=== PATIENT | male | born 1940 | race Caucasian/White ===

== ENCOUNTER 2017-11-23 09:45 | Outpatient (RCR) | payer OTHER, SELFPAY ==
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
--- NOTE | 2017-09-21 12:01 | PT.OPPOC ---
Current Diagnoses Full incontinence of feces (09/21/17) Unspecified urinary incontinence (09/21/17) Provider Visit Care Team Role Provider Type Alec Merrill MD Attending Provider Non-Staff Family Provider Primary Care Provider Specialty: Internal Medicine Address: [address] [place] [address], [facility] Email: Plan Of Care PT-OP-T Assessment and Plan Start: 09/21/17 09:41 Freq: Status: Active Protocol: Document 09/21/17 09:45 AMB (Rec: 09/21/17 13:01 AMB [email or web address]) Physical Therapy Assessment Rehab Potential Rehabilitation Potential Good Evaluation Complexity Number of Personal Factors/Comorbidities 1-2 Number of Body Systems Impaired 1-2 Clinical Presentation at Evaluation Stable Impairments Impairments Functional Activities Strength Goals Two Impairment Functional activities Short Term Goal (STG) The patient will get into a bowel routine, so that he has a bowel movement regularly in the morning. STG Duration 5 weeks One Impairment Pelvic floor strength Short Term Goal (STG) The patient will improve his pelvic floor strength to 3/5. STG Duration 5 weeks Snf Goal (LTG) The patient will use pelvic floor strengthening to be independent with an urge suppression program. 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 He now has intermittent difficult holding his bowels. He does present with sphincter weakness, but improved bowel habits would also improve his continence. He will benefit from physical therapy for instruction in both strengthening and improving bowel habits. Physical Therapy Plan Frequency and Duration Frequency of Treatment 1x/Week Duration of Treatment 10 weeks Plan of Care Start Date 09/21/17 Plan of Care End Date 11/30/17 Therapeutic Interventions Therapeutic Interventions Home Exercise Program Manual Therapy Neuromuscular Re-education Patient/Caregiver Education Self-Care/Home Management Therapeutic Activities Therapeutic Exercises Modalities Biofeedback Electric Stimulation Next Visit Focus/Plan Next Note Type Treatment Note Plan of Care Dates Plan of Care Start Date 09/21/17 Plan of Care End Date 11/30/17 Please Sign and Return: I have reviewed this Plan of Care and certify that the skilled therapy services above are required to meet the patient?s needs. Physician Signature Date Printed Name and Credentials Clinical Instructor Signature Printed Name and Credentials
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
== END 2018-01-21 16:36 ==
LOC: PHYS 09:45
PROVIDERS: Family Provider Internal Medicine; PCP Internal Medicine; Visit Provider Internal Medicine
DX: R32 Unspecified urinary incontinence (principal)
CPT/HCPCS: 97110; 97112; 97161